=== PATIENT | female | born 1990 | race Caucasian/White ===

== ENCOUNTER 2017-09-27 17:32 | Emergency (ER) | payer OTHER ==
[~2017-09-27] VITALS: Ht 162.6 cm; Wt 71.7 kg
[~2017-09-27 17:32] MED LIST: AMBIEN 5 MG TABL5 M1 PO; AZURETTE 28 DA1 EACH PO; BUPROPION XL150 MG PO; CYMBALTA60 MG PO; HYDROCODONE-APA1 TA1 PO; KEFLEX500 MG PO; NEURONTIN 300300 M1 PO; NEXIUM40 MG PO; NORCO 10-325 T1 EACH PO; PREDNISONE50 MG PO; PRISTIQ100 MG PO; PROAIR HFA8.5 GM INH; TRAMADOL 50 MG50 MG PO; amitriptyline PO
[2017-09-27 18:10] LABS: ABSOLUTE BASOPHILS 0.2 thou/uL (0.0-0.2); ABSOLUTE EOSINOPHILS 0.1 thou/uL (0.0-0.7); ABSOLUTE LYMPHOCYTES 2.4 thou/uL (0.8-5.3); ABSOLUTE MONOCYTES 0.6 thou/uL (0.0-1.2); ABSOLUTE NEUTROPHILS 4.3 thou/uL (1.6-8.1); BASOPHILS 2.4 %; EOSINOPHILS 0.9 %; LYMPHOCYTES 31.7 %; MCH 30.5 pg (26.0-34.0); MCHC 34.2 g/dL (28.0-37.0); MCV 89.3 fL (80.0-100.0); MONOCYTES 7.7 %; MPV 6.9 fl. (7.2-11.1); NUCLEATED RBCS 0 /100WBC; PLATELET COUNT* 412 thou/uL (150-400); POLYS 57.3 %; RBC 4.25 mil/uL (4.20-5.00); WBC 7.5 thou/uL (4.0-11.0)
[2017-09-27 18:20] LABS: ANION GAP 8 mmol/L (7-16); BUN 11 mg/dL (7-18); CALCIUM 8.7 mg/dL (8.5-10.1); CHLORIDE 106 mmol/L (98-107); CO2 24 mmol/L (21-32); CREATININE 0.9 mg/dL (0.6-1.3); GLUCOSE 89 mg/dL (70-99); POTASSIUM 4.1 mmol/L (3.5-5.1); SODIUM 138 mmol/L (136-145)
[2017-09-27 18:35] LABS: ALBUMIN 3.5 g/dL (3.4-5.0); ALKALINE PHOSPHATASE 44 U/L (46-116); LIPASE 301 U/L (73-393); NT-PRO BRAIN NAT PEPTIDE 36 pg/mL (<300); SGOT 12 U/L (15-37); SGPT 13 U/L (30-65); TOTAL BILIRUBIN 0.2 mg/dL (<0.1-1.0); TOTAL PROTEIN 7.7 g/dL (6.4-8.2); TROPONIN-I LEVEL <0.06 ng/mL (<0.06)
[2017-09-27] MEDS ORDERED: RITALIN5 MG PO (19:42)
[2017-09-27 20:12] VITALS: BP 91/58
--- NOTE | 2017-09-28 13:53 | EKG ---
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
== END 2017-09-27 20:13 | disposition home or self-care (01) ==
LOC: M.ERS 17:32
PROVIDERS: Physician Assistant
DX: R07.89 Other chest pain (principal); F41.9 Anxiety disorder, unspecified; Z98.890 Other specified postprocedural states; Z88.0 Allergy status to penicillin; Z88.2 Allergy status to sulfonamides

== ENCOUNTER 2018-08-07 10:08 | Emergency (ER) | payer OTHER ==
[~2018-08-07] VITALS: Ht 162.6 cm; Wt 59.9 kg
[~2018-08-07 10:08] MED LIST changes: +RITALIN5 MG PO
[2018-08-07] MEDS ORDERED: VALIUM10 MG PO (10:10)
[2018-08-07] MEDS ORDERED: LATUDA20 MG PO (10:10)
[2018-08-07] MEDS ORDERED: SYEDA 28 TABLE1 EACH PO (10:12)
[2018-08-07] MEDS ORDERED: TOPAMAX 100 MG100 MG PO (10:12)
[2018-08-07] MEDS ORDERED: WOMEN'S MULTI200 MCG PO (10:12)
[2018-08-07] MEDS ORDERED: PROPRANOLOL 1010 MG PO (10:13)
[2018-08-07 10:28] LABS: ABSOLUTE BASOPHILS 0.1 thou/uL (0.0-0.2); ABSOLUTE LYMPHOCYTES 1.6 thou/uL (0.8-5.3); ABSOLUTE MONOCYTES 0.4 thou/uL (0.0-1.2); ABSOLUTE NEUTROPHILS 5.9 thou/uL (1.6-8.1); BASOPHILS 0.7 %; EOSINOPHILS 0.1 %; HEMATOCRIT 38.4 % (37.0-47.0); HEMOGLOBIN 13.2 gm/dL (12.0-15.0); LYMPHOCYTES 19.8 %; MCH 31.1 pg (26.0-34.0); MCHC 34.3 g/dL (28.0-37.0); MCV 90.7 fL (80.0-100.0); MONOCYTES 5.1 %; MPV 7.4 fl. (7.2-11.1); NUCLEATED RBCS 0 /100WBC; PLATELET COUNT* 416 thou/uL (150-400); POLYS 74.3 %; RBC 4.24 mil/uL (4.20-5.00); RDW-CV 12.7 % (10.5-14.5)
[2018-08-07 10:42] LABS: CREATININE 0.8 mg/dL (0.6-1.3)
[2018-08-07 10:46] LABS: POTASSIUM 2.9 mmol/L (3.5-5.1)
[2018-08-07 10:47] LABS: ALBUMIN 3.5 g/dL (3.4-5.0); TOTAL BILIRUBIN 0.3 mg/dL (<0.1-1.0); TOTAL PROTEIN 7.1 g/dL (6.4-8.2)
[2018-08-07 11:02] LABS: ICTOTEST (BILI CONFIRMATORY) Positive (Negative); URINE BILIRUBIN 2+ (Negative); URINE BLOOD 3+ (Negative); URINE CLARITY CLEAR; URINE COLOR DARK YELLOW; URINE GLUCOSE-RANDOM NEGATIVE (Negative); URINE KETONES TRACE (Negative); URINE LEUKOCYTES-REFLEX NEGATIVE (Negative); URINE NITRITE-REFLEX NEGATIVE (Negative); URINE PROTEIN 2+ (Negative); URINE SPECIFIC GRAVITY >= 1.030 (1.005-1.030)
[2018-08-07 11:04] LABS: AMP/METHAMP Negative (Negative); BARBITURATES Negative (Negative); BENZODIAZEPINES POSITIVE (Negative); COCAINE Negative (Negative); METHADONE Negative (Negative); OPIATES POSITIVE (Negative); PCP Negative (Negative); THC POSITIVE (Negative)
[2018-08-07 11:09] LABS: BACTERIA-REFLEX 1-9 Few /HPF (None Seen); SQUAMOUS 4-10 Moderate /LPF (0-3); URINE WBC-REFLEX 0-5 Rare /HPF (0-5)
[2018-08-07 11:10] LABS: CASTS None Seen /LPF (None Seen); CRYSTALS None Seen /LPF (None Seen); MUCUS >6 Heavy strn/LPF (None Seen)
[2018-08-07] MEDS ORDERED: MACROBID 100 M100 MG PO (12:30)
[2018-08-07] MEDS ORDERED: NAPROSYN500 MG PO (12:30)
[2018-08-07] MEDS ORDERED: POTASSIUM20 PO (12:30)
[2018-08-07 12:57] LABS: ACETAMINOPHEN 6 ug/mL (10-30); SALICYLATE < 2.8 mg/dL (2.8-20.0)
[2018-08-07 12:59] LABS: ALCOHOL < 10 mg/dL (<10)
[2018-08-07] MEDS ORDERED: NORCO 5-325 TA1 EACH PO (19:00)
[2018-08-07 20:45] VITALS: BP 129/83
--- NOTE | 2018-08-09 15:31 | EKG ---
[place] [address] ELECTROCARDIOGRAM REPORT Name: ARABELLA TANG Room: [facility]#: [id number] Admission: 08/07/18 Attend Phys: Discharge: 08/07/18 Date of : [birth year] Report #: [id number] THIS REPORT FOR: //name// 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 : 1990 Requested By: Mary Keith Order Number: [id number] MD: Tyree Shearer Measurements Intervals [place] Rate: 79 P: 29 [place]: 150 QRS: -1 QRSD: 95 T: 2 QT: 381 QTc: 437 Interpretive Statements Sinus rhythm RSR' in V1 or V2, probably normal variant Compared to ECG 09/27/2017 17:40:05 RSR' in V1 or V2 now present Electronically Signed On 08-09-2018 15:31:26 [employer] by Tyree Shearer [email or web address] <ELECTRONICALLY SIGNED> By: Tyree Shearer MD, [facility] 08/09/18 1531 1009 1009 Tyree Shearer MD, [facility] /EPI
== END 2018-08-07 20:45 ==
LOC: M.ERS 10:08
PROVIDERS: Nurse Practitioner Family
DX: F41.9 Anxiety disorder, unspecified (principal); F23 Brief psychotic disorder; E87.6 Hypokalemia; N39.0 Urinary tract infection, site not specified; K58.9 Irritable bowel syndrome, unspecified; Z88.0 Allergy status to penicillin; Z88.2 Allergy status to sulfonamides; Z79.899 Other long term (current) drug therapy

== ENCOUNTER 2018-08-12 21:23 | Emergency (ER) | payer OTHER ==
[~2018-08-12] VITALS: Ht 162.6 cm; Wt 59.0 kg
[~2018-08-12 21:23] MED LIST changes: +LATUDA20 MG PO; +MACROBID 100 M100 MG PO; +NAPROSYN500 MG PO; +NORCO 5-325 TA1 EACH PO; +POTASSIUM20 PO; +PROPRANOLOL 1010 MG PO; +SYEDA 28 TABLE1 EACH PO; +TOPAMAX 100 MG100 MG PO; +VALIUM10 MG PO; +WOMEN'S MULTI200 MCG PO
[2018-08-12 21:59] LABS: URINE BILIRUBIN NEGATIVE (Negative); URINE BLOOD NEGATIVE (Negative); URINE CLARITY CLEAR; URINE COLOR YELLOW; URINE GLUCOSE-RANDOM NEGATIVE (Negative); URINE KETONES 1+ (Negative); URINE LEUKOCYTES-REFLEX NEGATIVE (Negative); URINE NITRITE-REFLEX NEGATIVE (Negative); URINE PROTEIN 2+ (Negative); URINE SPECIFIC GRAVITY >= 1.030 (1.005-1.030); URINE UROBILINOGEN 0.2 E.U./dl (0.2-1.0)
[2018-08-12 22:05] LABS: AMP/METHAMP Negative (Negative); BARBITURATES Negative (Negative); BENZODIAZEPINES POSITIVE (Negative); COCAINE Negative (Negative); METHADONE Negative (Negative); OPIATES POSITIVE (Negative); PCP Negative (Negative); THC POSITIVE (Negative)
[2018-08-12 22:08] LABS: BACTERIA-REFLEX 1-9 Few /HPF (None Seen); CRYSTALS None Seen /LPF (None Seen); HYALINE CASTS 0-3 Few /LPF (None Seen); MUCUS >6 Heavy strn/LPF (None Seen); SQUAMOUS 0-3 Few /LPF (0-3); URINE RBC None Seen /HPF (0-2); URINE WBC-REFLEX 0-5 Rare /HPF (0-5)
[2018-08-12 22:12] LABS: HEMATOCRIT 39.8 % (37.0-47.0); HEMOGLOBIN 13.3 gm/dL (12.0-15.0); MCH 30.9 pg (26.0-34.0); MCHC 33.3 g/dL (28.0-37.0); MCV 92.8 fL (80.0-100.0); MPV 7.6 fl. (7.2-11.1); NUCLEATED RBCS 0 /100WBC; PLATELET COUNT* 397 thou/uL (150-400); RBC 4.29 mil/uL (4.20-5.00); RDW-CV 12.6 % (10.5-14.5); WBC 16.3 thou/uL (4.0-11.0)
[2018-08-12 22:20] LABS: CALCIUM 9.2 mg/dL (8.5-10.1); POTASSIUM 3.5 mmol/L (3.5-5.1)
[2018-08-12 22:25] LABS: ALBUMIN 3.6 g/dL (3.4-5.0); TOTAL BILIRUBIN 0.2 mg/dL (<0.1-1.0); TOTAL PROTEIN 7.4 g/dL (6.4-8.2)
[2018-08-12 22:32] LABS: SALICYLATE < 2.8 mg/dL (2.8-20.0)
[2018-08-12 22:33] LABS: ACETAMINOPHEN < 2 ug/mL (10-30); ALCOHOL < 10 mg/dL (<10)
[2018-08-12 22:41] LABS: ABSOLUTE LYMPHOCYTES 0.8 thou/uL (0.8-5.3); ABSOLUTE MONOCYTES 0.7 thou/uL (0.0-1.2); ABSOLUTE NEUTROPHILS 14.8 thou/uL (1.6-8.1); PLATELET ESTIMATE ADEQUATE
[2018-08-13 01:53] VITALS: BP 125/72
== END 2018-08-13 02:09 | disposition home or self-care (01) ==
LOC: M.ERS 21:23
PROVIDERS: Emergency Medicine
DX: F41.9 Anxiety disorder, unspecified (principal); Z88.0 Allergy status to penicillin; Z88.2 Allergy status to sulfonamides

== ENCOUNTER 2018-08-29 20:31 | Emergency (ER) | payer OTHER ==
[~2018-08-29] VITALS: Ht 162.6 cm; Wt 59.0 kg
[~2018-08-29 20:31] MED LIST changes: +NORCO 10-325 T1 EACH; -NORCO 5-325 TA1 EACH PO
[2018-08-29] MEDS ORDERED: TRAZODONE HCL50 MG (20:56)
[2018-08-29] MEDS ORDERED: RITALIN20 MG (20:57)
[2018-08-29 20:58] LABS: URINE BILIRUBIN NEGATIVE (Negative); URINE BLOOD 3+ (Negative); URINE CLARITY CLEAR; URINE COLOR YELLOW; URINE GLUCOSE-RANDOM NEGATIVE (Negative); URINE KETONES TRACE (Negative); URINE LEUKOCYTES-REFLEX NEGATIVE (Negative); URINE NITRITE-REFLEX NEGATIVE (Negative); URINE PROTEIN NEGATIVE (Negative); URINE SPECIFIC GRAVITY >= 1.030 (1.005-1.030); URINE UROBILINOGEN 0.2 E.U./dl (0.2-1.0)
[2018-08-29 21:05] LABS: CASTS None Seen /LPF (None Seen); MUCUS 4-6 Moderate strn/LPF (None Seen); SQUAMOUS >10 Many /LPF (0-3)
[2018-08-29 21:07] LABS: BACTERIA-REFLEX 1-9 Few /HPF (None Seen); CALCIUM OXALATE 4-10 Moderate /LPF (None Seen); URINE RBC 3-10 Few /HPF (0-2); URINE WBC-REFLEX 0-5 Rare /HPF (0-5)
[2018-08-29 21:23] LABS: ABSOLUTE BASOPHILS 0.1 thou/uL (0.0-0.2); ABSOLUTE EOSINOPHILS 0.1 thou/uL (0.0-0.7); ABSOLUTE LYMPHOCYTES 3.1 thou/uL (0.8-5.3); ABSOLUTE MONOCYTES 0.5 thou/uL (0.0-1.2); BASOPHILS 1.3 %; HEMATOCRIT 36.9 % (37.0-47.0); HEMOGLOBIN 12.5 gm/dL (12.0-15.0); LYMPHOCYTES 40.4 %; MCH 31.3 pg (26.0-34.0); MCHC 33.7 g/dL (28.0-37.0); MCV 92.9 fL (80.0-100.0); MONOCYTES 6.5 %; MPV 7.1 fl. (7.2-11.1); NUCLEATED RBCS 0 /100WBC; PLATELET COUNT* 366 thou/uL (150-400); POLYS 50.8 %; RBC 3.98 mil/uL (4.20-5.00); RDW-CV 12.2 % (10.5-14.5); WBC 7.8 thou/uL (4.0-11.0)
[2018-08-29 21:44] LABS: CALCIUM 8.6 mg/dL (8.5-10.1); CREATININE 0.9 mg/dL (0.6-1.3); POTASSIUM 3.5 mmol/L (3.5-5.1)
[2018-08-29 21:49] LABS: ALBUMIN 3.3 g/dL (3.4-5.0); TOTAL BILIRUBIN 0.2 mg/dL (<0.1-1.0); TOTAL PROTEIN 6.8 g/dL (6.4-8.2)
[2018-08-29] MEDS ORDERED: ROBAXIN 750 MG750 M1 PO (22:14)
[2018-08-29] MEDS ORDERED: MEDROLDOSEPACK PO (22:14)
[2018-08-29 22:40] VITALS: BP 132/68
== END 2018-08-29 22:40 | disposition home or self-care (01) ==
LOC: M.ERS 20:31
PROVIDERS: Physician Assistant
DX: M54.5 Low back pain (principal); R10.9 Unspecified abdominal pain; R31.9 Hematuria, unspecified; F41.9 Anxiety disorder, unspecified; F32.9 Major depressive disorder, single episode, unspecified; Z88.0 Allergy status to penicillin; Z88.2 Allergy status to sulfonamides

== ENCOUNTER 2019-03-23 22:49 | Emergency (ER) | payer OTHER ==
[~2019-03-23] VITALS: Ht 162.6 cm; Wt 54.4 kg
[~2019-03-23 22:49] MED LIST changes: +MEDROLDOSEPACK PO; +RITALIN20 MG; +ROBAXIN 750 MG750 M1 PO; +TRAZODONE HCL50 MG
[2019-03-23 23:26] LABS: URINE BLOOD NEGATIVE (Negative); URINE CLARITY CLEAR; URINE COLOR YELLOW; URINE GLUCOSE-RANDOM NEGATIVE (Negative); URINE KETONES 2+ (Negative); URINE LEUKOCYTES-REFLEX NEGATIVE (Negative); URINE NITRITE-REFLEX NEGATIVE (Negative); URINE PROTEIN NEGATIVE (Negative); URINE SPECIFIC GRAVITY >= 1.030 (1.005-1.030); URINE UROBILINOGEN 0.2 E.U./dl (0.2-1.0)
[2019-03-23 23:29] LABS: ICTOTEST (BILI CONFIRMATORY) Negative (Negative); URINE BILIRUBIN 1+ (Negative)
[2019-03-23 23:31] LABS: AMP/METHAMP Negative (Negative); BARBITURATES Negative (Negative); BENZODIAZEPINES POSITIVE (Negative); COCAINE Negative (Negative); METHADONE Negative (Negative); OPIATES POSITIVE (Negative); PCP Negative (Negative); THC Negative (Negative)
[2019-03-24 00:28] LABS: ABSOLUTE BASOPHILS 0.1 thou/uL (0.0-0.2); ABSOLUTE EOSINOPHILS 0.1 thou/uL (0.0-0.7); ABSOLUTE LYMPHOCYTES 1.6 thou/uL (0.8-5.3); ABSOLUTE MONOCYTES 0.4 thou/uL (0.0-1.2); ABSOLUTE NEUTROPHILS 6.7 thou/uL (1.6-8.1); EOSINOPHILS 0.8 %; HEMATOCRIT 33.2 % (37.0-47.0); HEMOGLOBIN 11.6 gm/dL (12.0-15.0); LYMPHOCYTES 18.1 %; MCH 32.2 pg (26.0-34.0); MCHC 35.1 g/dL (28.0-37.0); MCV 91.7 fL (80.0-100.0); MONOCYTES 4.4 %; MPV 7.5 fl. (7.2-11.1); NUCLEATED RBCS 0 /100WBC; PLATELET COUNT* 363 thou/uL (150-400); POLYS 75.7 %; RBC 3.62 mil/uL (4.20-5.00); RDW-CV 12.4 % (10.5-14.5); WBC 8.8 thou/uL (4.0-11.0)
[2019-03-24 00:38] LABS: CALCIUM 8.7 mg/dL (8.5-10.1); CREATININE 0.8 mg/dL (0.6-1.3); POTASSIUM 3.7 mmol/L (3.5-5.1)
[2019-03-24 00:42] LABS: ALBUMIN 3.2 g/dL (3.4-5.0); TOTAL BILIRUBIN 0.3 mg/dL (<0.1-1.0); TOTAL PROTEIN 6.4 g/dL (6.4-8.2)
[2019-03-24 00:50] LABS: ACETAMINOPHEN < 2 ug/mL (10-30); ALCOHOL < 10 mg/dL (<10); SALICYLATE < 2.8 mg/dL (2.8-20.0)
[2019-03-26 17:07] VITALS: BP 94/52
== END 2019-03-26 17:08 ==
LOC: M.ERS 22:49
PROVIDERS: Emergency Medicine
DX: F29 Unspecified psychosis not due to a substance or known physiological condition (principal); F91.9 Conduct disorder, unspecified; F25.9 Schizoaffective disorder, unspecified; F41.9 Anxiety disorder, unspecified; F32.9 Major depressive disorder, single episode, unspecified

== ENCOUNTER → 2019-06-30 | Outpatient (CLI) | payer OTHER ==
[~2019-06-30] MED LIST changes: +DROSPIRENONE-E1 EAC1 PO; +ELAVIL PO; +NEXIUM 40 MG CA40 M1 PO; +NORCO 10-325 T1 EAC1 PO; -NORCO 10-325 T1 EACH; +RISPERDAL 3 MG T3 MG PO; +TRAZODONE HCL50 MG PO; +VITAMIN D250000 UNIT PO
== END ==
LOC: M.PC 04:06
DX: M43.26 Fusion of spine, lumbar region (principal); M47.816 Spondylosis without myelopathy or radiculopathy, lumbar region; M51.36 Other intervertebral disc degeneration, lumbar region

== ENCOUNTER → 2019-09-20 | Outpatient (CLI) | payer OTHER | LOC: M.PC 01:27 | DX: M47.816 Spondylosis without myelopathy or radiculopathy, lumbar region (principal); M51.36 Other intervertebral disc degeneration, lumbar region ==

== ENCOUNTER → 2020-06-21 | Outpatient (CLI) | payer OTHER | LOC: M.RAD 09:16 | PROVIDERS: ATTEND Internal Medicine | DX: R05 Cough (principal); Z88.0 Allergy status to penicillin; Z88.2 Allergy status to sulfonamides ==

== ENCOUNTER → 2021-09-18 | Outpatient (CLI) | payer OTHER ==
--- NOTE | 2021-10-17 19:29 | PF ---
[address] [address] PULMONARY FUNCTION REPORT Name: ARABELLA TANG Room: [facility]#: [id number] Admission: 09/18/21 Attend Phys: Robert Koenig MD Discharge: Date of : [birth year] Report #: [id number] THIS REPORT FOR: cc: Robert Koenig MD, Meng MD Pervez, Adeel MD ~ DATE OF VISIT: 09/18/2021 The FEV1/FVC ratio is decreased to 60% with an FVC normal at 87%. The FEV1 is decreased to 62%. The FEF 25-75 is decreased to 18%. After the administration of a bronchodilator, there is 79% increase in the FEF 25-75. There is no significant increase in any of the other values mentioned here. The patient's post-bronchodilator FEV1 is 2.15 liters. The total lung capacity is normal at 85% with residual volume decreased to 66%. The DLCO as adjusted for hemoglobin is decreased to 50%. The flow volume loop is concave upwards. IMPRESSION: 1. Moderate obstruction with some evidence of reversibility in that the FEF 25-75 increases after the administration of bronchodilators; however, FVC and FEV1 are not significantly changed. 2. There is an isolated reduction in residual volume to 66%. This could be due to underlying restriction or could be a normal variant. Clinical correlation is advised. The total lung capacity, however, is normal. 3. The DLCO as adjusted for hemoglobin is decreased to 50%. <ELECTRONICALLY SIGNED> By: Dejon Schuler MD 10/17/21 1929 1635 1943Apreston Schuler MD /nt
== END ==
LOC: M.PUL 07-24 14:00
PROVIDERS: ATTEND Internal Medicine
DX: R06.2 Wheezing (principal)

== ENCOUNTER → 2021-10-31 | Outpatient (CLI) | payer OTHER | LOC: M.RAD 11:41 | PROVIDERS: ATTEND Internal Medicine | DX: J44.9 Chronic obstructive pulmonary disease, unspecified (principal); J98.4 Other disorders of lung; M54.42 Lumbago with sciatica, left side; G89.29 Other chronic pain; M41.9 Scoliosis, unspecified; F17.200 Nicotine dependence, unspecified, uncomplicated ==